=== PATIENT | male | born 1950 | race Caucasian/White ===

== ENCOUNTER 2021-08-15 08:48 | Outpatient (CLI) | payer OTHER ==
[2021-08-15] MEDS ORDERED: Iopamidol 370 76% 100 ML VIAL ONE (09:15)
== END 2021-08-15 08:49 | disposition home or self-care (01) ==
LOC: CSHCT 08:48
PROVIDERS: ATTEND Thoracic Surgery (Cardiothoracic Vascular Surgery)
DX: I71.4 Abdominal aortic aneurysm, without rupture (principal); Z95.828 Presence of other vascular implants and grafts
CPT/HCPCS: 74174; 82565